=== PATIENT | male | born 1960 ===

== ENCOUNTER 2017-09-16 08:22 | Emergency (ER) | payer OTHER ==
[~2017-09-16] VITALS: Ht 170.2 cm; Wt 104.3 kg
[2017-09-16] MEDS ORDERED: METFORMIN PO (08:31)
--- NOTE | 2017-09-16 08:41 | NUR ---
Dr. Nicholson at bedside for MSE.
[2017-09-16] MEDS ORDERED: IV NORMAL SALINE 1000 ML BAG IV ONE (09:00)
[2017-09-16] MEDS ORDERED: LORAZEPAM 2 MG/1 ML VIAL IV ONE (09:00)
[2017-09-16] MEDS ORDERED: LORAZEPAM 2 MG/1 ML VIAL ONE (09:12)
--- NOTE | 2017-09-16 09:21 | NUR ---
TRANSPORTED TO CT VIA GURNEY, FREQUENT PAC SEEN ON THE MONITOR. ATIVAN AND FLUIDS GIVEN IN 20 RIGHT FOREARM. THE PATIENT STATES HE IS A [employer]. WILL MONITOR AND EVALUATE PAIN REGULARLY. 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 Addendum: 09/16/17 at 1133 by MELO 11:15 A PT WALKED TO THE BATHROOM WITH MODERATELY STEADY GAIT. HE REPORTS FEELING MUCH BETTER BUT NOT QUIET 100%. Addendum: 09/16/17 at 1301 by MELO 13:01 KEVON QUIGLEY ACCEPTED THE CLIENT, [id number] ACCEPTANCE NUMBER, WILL WAIT FOR LOCATION CLIENT IS GOING TO. Addendum: 09/16/17 at 1433 by MELO 14:[address] Anglin CONTROL DIRECTOR SPOKE TO ACCEPTING AT 14:34 AND PROVIDED REPORT, TRANSFER PAPERWORK READY FOR TRANSPORT [facility]. Addendum: 09/16/17 at 1601 by MELO 16:00 [facility] transfer arrived and took the client to [facility]. Pain free, slightly hypertensive 140/71, able to ambulate without syncope and dizziness.
[2017-09-16 09:31] LABS: BASOPHILS # (AUTO) 0.1 K/uL (0.0-8.0); BASOPHILS % (AUTO) 0.7 % (0.0-2.0); EOSINOPHILS # (AUTO) 0.1 K/uL (0.0-0.7); EOSINOPHILS % (AUTO) 1.3 % (0.0-7.0); HEMATOCRIT 45.8 % (36.7-47.1); HEMOGLOBIN 15.5 g/dL (12.5-16.3); LYMPHOCYTES # (AUTO) 1.9 K/uL (20.0-40.0); MEAN CORPUSCULAR HEMOGLOBIN 29.2 uug (23.8-33.4); MEAN CORPUSCULAR HGB CONC 34 g/dL (32.5-36.3); MEAN CORPUSCULAR VOLUME 86.3 fL (73.0-96.2); MONOCYTES # (AUTO) 0.7 K/uL (2.0-10.0); MONOCYTES % (AUTO) 8.7 % (0.0-11.0); NEUTROPHILS # (AUTO) 5.4 K/uL (1.8-8.9); NEUTROPHILS % (AUTO) 66.3 % (38.5-71.5); PLATELET COUNT (AUTO) 211 K/uL (152-348); RED BLOOD CELL COUNT(AUTO) 5.31 MIL/uL (4.06-5.63); WHITE BLOOD COUNT (AUTO) 8.1 K/uL (3.6-10.2)
[2017-09-16 09:41] LABS: CREATININE 1.3 mg/dL (0.6-1.3); POTASSIUM 4.2 mmol/L (3.5-5.1)
[2017-09-16 09:46] LABS: BILIRUBIN,DIRECT 0.1 mg/dL (0.0-0.2); BILIRUBIN,TOTAL 0.4 mg/dL (0.2-1.0); TOTAL PROTEIN, SERUM 7.1 g/dL (6.4-8.2)
[2017-09-16 09:53] LABS: MAGNESIUM 1.9 mg/dL (1.8-2.4)
[2017-09-16 09:54] LABS: THYROID STIMULATING HORMONE 0.745 mIU/mL (0.358-3.740)
[2017-09-16] MEDS ORDERED: MECLIZINE HCL 25 MG TABLET PO ONE (10:00)
[2017-09-16] MEDS ORDERED: MECLIZINE HCL 25 MG TABLET ONE (10:12)
--- NOTE | 2017-09-16 14:20 | NUR ---
Received call from [facility] who provided transfer information. Pt going to [facility] ER Accepting physician : Dr. Pierce Call report to [phone] ALS transport, eta 45 mins.
[2017-09-16 16:42] VITALS: BP 130/88
== END 2017-09-16 16:25 | disposition short-term general hospital (02) ==
LOC: ER 08:26
DX: R55 Syncope and collapse (principal); Z88.0 Allergy status to penicillin; Z90.89 Acquired absence of other organs; Z79.84 Long term (current) use of oral hypoglycemic drugs
CPT/HCPCS: 36415; 70450; 71045; 80048; 80076; 82962; 83735; 83880; 84443; 84484; 85025; 85730; 93005; 96361; 96374; 99285; A4663; J2060; J7030; J8597; 70030-TC